=== PATIENT | male | born 1955 | race Caucasian/White ===

== ENCOUNTER 2024-06-29 10:28 | Outpatient (CLI) | payer BC, SELFPAY ==
--- NOTE | ~2024-06-29 | CT_ITS ---
EXAMINATION: CT sinus wo con DATE: 06/29/2024 10:45 INDICATION: Chronic sinusitis. TECHNIQUE: Computed tomography (CT) of the paranasal sinuses was performed without intravenous contra st. Iterative reconstruction technique was employed. The dose-length product was 279.12 mGy-cm. COMPARISON: None FINDINGS: There is mucosal thickening in the frontal sinuses with occlusion of the frontal recesses. There is moderate mucosal thickening in the ethmoid sinuses and right sphenoid sinus. There is mild m ucosal thickening in the maxillary sinuses. The ostiomeatal units are patent. There is leftward devia tion of the nasal septum. Right middle turbinate is paradoxical. There are bilateral optic nerve drus en. IMPRESSION: 1. Mucosal thickening in the paranasal sinuses. 2. Leftward deviation of the nasal septum. Reviewed, dictated and finalized at location A. TAL CONT[employer] SPECIALIST
== END 2024-06-29 10:29 | disposition home or self-care (01) ==
LOC: MICIMG 10:32
PROVIDERS: PCP Nurse Practitioner Family; Visit Provider Nurse Practitioner Family
DX: J32.9 Chronic sinusitis, unspecified (principal); J34.2 Deviated nasal septum
CPT/HCPCS: 70486

== ENCOUNTER 2024-12-14 10:12 | Outpatient (CLI) | payer BC, SELFPAY ==
--- OUTSIDE RECORDS SUMMARY | 2024-12-14 11:07 | XMS_ITS | Patient Health Record ---
Author Organization [facility] Address [address] [place] [address] Care Team Providers Care Stationary Engineer Supervisor Name Role Phone Carmelina Andrade MD Primary Care Provider Piyush Delarosa MD, Carlos Unavailable [phone] ALLERGIES No Known Allergies REASON FOR REFERRAL No Information MEDICATIONS Medication SIG (Take, Route, Fr equency, Duration) Notes Start Date End Date Status Atorvastatin Calcium Active IMMUNIZATIONS Vaccine Route Administration Date Status Comme nts Influenza Unknown 05/11/2018 Administered pneumoccocal Unknown 12/09/2018 Refused SOCIAL HISTORY Tobacco Use: Social History Observation Description Date Details (start date - stop date) Never Smoker NA - NA Sex Assigned At : Social History Observation Description Sex Assigned At Unknown Tobacco Use: Question Answer Notes Patient is a: nonsmoker Alcohol screening: Question Answer Notes Did you have a drink contain ing alcohol in the past year? Yes How often did you have a dri nk containing alcohol in the past year? Four or more times a week (4 points) How many drinks did you have on a typical day when you were drinking in the past year? 1 or 2 (0 points) Points 4 Interpretation Positive PROBLEMS Problem Type ICD Code Onset Dates Problem Status W/U Status Risk SNOMED Code Notes Problem Trochanteric bursitis of right hip (M70.61) Active confirmed 099812308075162 Problem Contusion of left foot, initial encounter (S90.32XA) Active confirmed 89544958858314496 Problem Walked into furniture, initial encounter (W22.03XA) Active confirmed 312103425 Problem Primary osteoarthritis of right hip (M16.11) 04/02/20 23 Active confirmed 051598278587951 Problem Essential (primary) hypertension (I10) Active confirmed [id number] PLAN OF TREATMENT No Information Insurance Providers Payer Name Payer Address Payer Phone Subscriber Number Group Number Insured Name Patient Relationship to Insured Coverage Start Date Coverage End Date [facility] [address] [place] [address] [id number] Kalia Ramirez Self - patient is the insured Medicare Secondary [address] [address] [place] [address] [id number] PART A ONLY Kalia Ramirez Self - patient is the insured MEDICAL (GENERAL) HISTORY Medical History History ICD Code hypertension hyperlipidemia Surgical History Surgery Date(Month/Year) tonsillectomy
--- OUTSIDE RECORDS SUMMARY | 2024-12-14 11:07 | XMS_ITS | Continuity of Care Document ---
Author Organization [facility] Address [address] [place] [address] [address] [place] [address] Phone Care Team Providers Care Crisis Intervention Counselor Name Role Phone Raj Esquivel Unavailable Unavailable Advance Directives Directive Yes / No Effective Date File Name No Information Encounters Encounter Description Practice Location Reason(s) For Visit Diagnoses Date Provider Providers Copied on Encounter [facility], [address], [place], [place], [id number], [place] tel:[phone] [address] [facility] [place] No Information 3 Alvin Anthony. [address] [place] , [facility] [address], [place], [place], [facility], [place]. tel:[phone] Referring Provider: Chase [facility] [place] [address] [address], [place], [place], [facility]. tel:[phone] Family History Family Member Type Diagnosis Age At Onset No Information Payers Payer name Insurance type Covered constitution party ID Authoriza tion(s) [employer] [place] [id number] Social History Type Description Quantity Date Captured Comments Sex Male Smoking Status No Information Chief Complaint And Reason For Visit No Information Reason For Referral Reason For Referral No Information History Of Present Illness Encounter Date Complaint History Of Prese nt Illness No Information Functional Status Date Functional Assessmen t No Information Instructions Date Instruction Additional Infor mation No Information Assessments Type Assessment Date No Information Patient Care Teams Name Effective Dates (start - stop) Status Members No Information
--- OUTSIDE RECORDS SUMMARY | 2024-12-14 11:07 | XMS_ITS | Clinical Summary ---
Author Organization 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 Gender Identity Not on file Sexual Orientation Not on file Plan of Treatment Health Maintenance Due Date Last Done Comments Hepatitis C Virus (HCV) Screening 1955 Colonoscopy 2002 Colorectal Cancer Screening 2002 Cologuard 2007 Immunochemical Fecal Occult Blood 2007 Pneumococcal Immunization (5 0+ years) (1 of 1 - PCV) 2007 Zoster Immunization (1 of 2) 2007 PSA Discussion 02/03/2012 Influenza Immunization (#1) 2024 SARS-COV-2 Immunization ( season) 2024 05/23/2021, 09/17/2020, 08/20/2020 Respiratory Syncytial Virus (RSV) Immunization (Adult) (1 - 1-dose 75+ series) 02/03/2032 DTaP/Tdap/Td Immunization Discontinued 2018, 11/16/2014 TdaP Immunization Completed 07/22/2018, 11/16/2014 Hepatitis B Immunization Aged Out No longer eligible based on patient's age to complete this topic Meningococcal Immunization (ACWY) Aged Out No longer eligible based on patient's age to complete this topic Rotavirus Immunization Aged Out No lo nger eligible based on patient's age to complete this topic
--- OUTSIDE RECORDS SUMMARY | 2024-12-14 11:07 | XMS_ITS ---
Author Organization [facility] Address [address] [place] [address] Care Team Providers Care Head Nurse Name Role Phone Raymond VALDOVINOS, Carmelina Primary Care Provider Piyush Delarosa MD, Carlos Unavailable [phone] ALLERGIES No Known Allergies REASON FOR VISIT right hip MEDICATIONS Medication SIG (Take, Route, Fr equency, Duration) Notes Start Date End Date Status Atorvastatin Calcium Active SOCIAL HISTORY Tobacco Use: Social History Observation [...] W/U Status Risk SNOMED Code Notes Problem Primary osteoarthritis of right hip (M16.11) 04/02/20 23 Active confirmed [id number] Problem Essential (primary) hypertension (I10) Active confirmed [id number] VITAL SIGNS Blood pressure systolic 144 mm Hg 08/02/19 24 Blood pressure diastolic 86 mm Hg 024 Heart Rate 69 /min 08/02/2023 Height 71 in 08/02/2023 Weight 180 lbs 08/02/2023 BMI 25.10 kg/m2 08/02/2023 Encounters Encounter Location Date Provider Diagnosis [facility] [address] [place] [address] 08/02/2023 Carlos Delarosa MD Primary osteoarthrit is of right hip M16.11 ASSESSMENTS Encounter Date Diagnosis Assessment Notes Treatment Notes Treatment Clinical Notes 08/02/2023 Primary osteoarthritis of right hip (ICD-10 - M16.11) PLAN OF TREATMENT No Information History and Physical Notes * HPI (History of Present Illness) Category Sub-Category Detail Notes Depression Screening PHQ-2 (2015 Edition) Little interest or pleasure in doing things?: Not at all Feeling down, depressed, or hopeless?: N ot at all Total Score: 0
--- OUTSIDE RECORDS SUMMARY | 2024-12-14 11:07 | XMS_ITS | Data Portability ---
Author Organization [facility], [employer] Address [address] [facility] [address] [facility] [address] [place] [address] Care Team Providers Care Crown Pouncer Name Role Phone EARNESTINE ANDERSON Primary Care Provider [phone] JAMES HUI Clinical Informatics Physician [phone] Assessment Encounter Date Assessment Date Assessment LastModified by Organization Details LastModified Time 01/10/2016 01/10/2016 Patient presented for follow up of labs. Studies ordered as below. Discussed plan with patient, who expressed understanding . Follow up as noted below. [email or web address] Not available 01/10/2016 12:52:18 04/21/2017 04/21/2017 Patient presented for follow up. Studies ordered as below. Discussed plan with patient/careg iver, who expressed understanding . Follow up as noted below. Not available 04/21/2017 17:57:29 10/20/2017 10/20/2017 Patient presented for follow up. Studies ordered as below. Discussed plan with patient/careg iver, who expressed understanding . Follow up as noted below. [email or web address] Not available 10/20/2017 17:36:47 07/22/2018 07/22/2018 Patient presented for follow up. Studies ordered as below. Discussed plan with patient/careg iver, who expressed understanding . Follow up as noted below. [email or web address] Not available 07/22/2018 09:01:50 Plan of Treatment Reminders Order Date Submit Date Provider Last Modified By Organization Details Last Modified Time Details Appointments None recorded. Lab HbA1c (hemoglobi n A1c), blood 2018 019 [email or web address] 1 [facility], [address] [facility], [place], [address], 9 09:41:55 C-peptide, serum 2018 019 1 [facility], [address], [place], [address], 9 09:41:56 glucose tolerance test, madhuandi al, 2-hour 2018 019 [email or web address] 1 [facility], [address], [place], [address], 9 09:41:56 microalbum in/creatin ine, mass ratio, urine 2018 019 [id number] 1 [facility], [address], [place], [address], 9 09:41:55 lipid panel, serum 2018 019 [id number] 1 [facility], [address], [place], [address], 9 09:41:55 TSH, serum or plasma 2018 019 [email or web address] 1 [facility], [address], [place], [address], 9 09:41:55 CK (creatine kinase), total, serum 2018 019 TIFFANIE [facility], [address], [place], [address], 9 14:12:44 CMP, serum or plasma 2018 019 [email or web address] 1 [facility], [address], [place], [address], 9 09:41:55 CBC w/ auto diff 2018 019 [email or web address] 1 [facility], [address], [place], [address], 9 09:41:55 CMP, serum or plasma 2016 017 [email or web address] [facility], [address], [place], [address], 7 09:19:16 CBC w/ auto diff 2016 017 [email or web address] [facility], [address], [place], [address], 7 09:19:16 lipid panel, serum 2016 017 [email or web address] [facility], [address], [place], [address], 7 09:19:17 TSH, serum or plasma 2016 017 [email or web address] [facility], [address], [place], [address], 7 09:19:17 PSA, serum or plasma 2016 017 [email or web address] [facility], [address], [place], [address], 7 09:19:17 hepatitis panel (A+B+C), acute, serum 2015 016 DBA_PATCH_ [id number] [facility], [address], [place], [address], 6 04:45:59 PSA, serum or plasma 2015 016 DBA_PATCH_ [id number] [facility], [address], [place], [address], 6 04:45:58 lipid panel w/ direct LDL, serum 2015 016 DBA_PATCH_ [id number] [facility], [address], [place], [address], 6 04:45:59 CMP, serum or plasma 2015 016 DBA_PATCH_ [id number] [facility], [address], [place], [address], 6 04:46:03 TSH, serum or plasma 2015 016 DBA_PATCH_ [id number] [facility], [address], [place], [address], 6 04:45:55 Referral colonoscop y referral 2018 019 [email or web address] 1 James Hui MD, [address], [place], [address], 9 09:42:04 optometris t referral 2018 019 [email or web address] 1 Whitney Knott, [address] [facility], [place], [address], 9 09:17:58 briar wood sorter referral 2017 018 [email or web address] Iron Carolina DPM, [address] [place], [address], 8 08:31:28 dermatolog ist referral 2016 017 [email or web address] Antwan Louise MD, [address] [facility] , [place], [address], 7 09:50:55 colonoscop y referral 2015 016 DBA_PATCH_ [id number] James Hui MD, [address], [place], [address], 6 04:45:55 Procedures None recorded. Surgeries None recorded. Imaging XR, hip, unilateral , 2 or 3 view 2018 019 [email or web address] 1 [facility] (Radiology), [address] [place] [address], [address], 9 15:03:22 electrocar diogram 2018 019 [facility], [address], [place], [address], 9 18:52:01 XR, foot 2017 018 Not available 8 08:44:45 Medication Orders tramadol 50 mg tablet 2018 019 [facility], [address] [place], [address], 9 09:25:24 nabumetone 500 mg tablet 2018 019 [facility], [address] [place], [address], 9 09:25:25 losartan 50 mg-hydroch lorothiazi de 12.5 mg tablet 2018 019 [facility], [address] [place], [address], 9 09:25:28 atorvastat in 20 mg tablet 2018 019 [facility], [address] [place], [address], 9 09:25:30 nabumetone 500 mg tablet 2017 018 [facility], [address] [place], [address], 8 18:32:14 Pravachol 20 mg tablet 2016 017 [email or web address], [address] [place], [address], 8 16:35:26 Patient TargetsNo targets recorded. Patient Instructions Encounter Date Encounter Id Patient Instructions Last Modified By Organization Details Last Modified Time 01/10/2016 [id number] colon polyps: care instructions [email or web address] Not available 01/10/2016 13:03:13 high cholesterol : care instructions [email or web address] Not available 01/10/2016 13:03:13 04/21/2017 [id number] colon polyps: care instructions [email or web address] Not available 04/24/2017 16:13:42 10/20/2017 [id number] plantar fasciitis: care instructions [email or web address] Not available 10/20/2017 18:28:24 plantar fasciitis: exercises [email or web address] Not available 10/20/2017 18:28:24 high cholesterol : care instructions [email or web address] Not available 10/20/2017 18:28:24 07/22/2018 [id number] learning about high blood sugar [email or web address] Not available 07/22/2018 09:22:22 colon polyps: care instructions [email or web address] Not available 07/22/2018 09:22:22 hip pain: care instructions Not available 07/22/2018 09:22:22 Reason for Referral Colonoscopy Referral for Fabián yp of colon Referring Physician: Earnestine Anderson [facility], Encounter Date: 01/10/2016 It Integration Architect Referral for L esion of skin of face Referring Physician: Earnestine Anderson [facility], Encounter Date: 04/21/2017 Camp Recreation Specialist Referral for Plan tar fasciitis Referring Physician: Earnestine Anderson [facility], Encounter Date: 10/20/2017 Glass Breaker Referral for Ronni lt health examination Referring Physician: Светлана Brock [facility], Encounter Date: 07/22/2018 Colonoscopy Referral for Fabián yp of colon Referring Physician: Светлана Brock [facility], Encounter Date: 07/22/2018 Results Created Date Observation Date Name Description Value Unit Range Abnormal Flag Note LastModifiedBy Organization Detail LastModifiedTime 01/16/20 16 01/17/2016 hepat itis panel (A+B+ C), acute , serum hepatitis A IgM NON-RE ACTIVE non-re active normal Not Available [facility] [address] [place], [address], 01/17/2016 07:08:34 01/16/20 16 01/17/2016 hepat itis panel (A+B+ C), acute , serum hepatitis B surface antigen NON-RE ACTIVE non-re active normal Not Available [address], [address], 01/17/2016 07:08:34 01/16/20 16 01/17/2016 hepat itis panel (A+B+ C), acute , serum hepatitis B core antibody (IgM) NON-RE ACTIVE non-re active normal Not Available [address], [address], 01/17/2016 07:08:34 01/16/20 16 01/17/2016 hepat itis panel (A+B+ C), acute , serum hepatitis C antibody NON-RE ACTIVE non-re active normal Not Available [address], [address], 01/17/2016 07:08:34 01/16/20 16 01/17/2016 hepat itis panel (A+B+ C), acute , serum signal to cut-off 0.01 <1.00 normal Not Available [address], [address], 01/17/2016 07:08:34 01/16/20 16 01/17/2016 lipid panel w/ direc t LDL, serum cholesterol, total 258 mg/dL 125-20 0 high Not Available [address], [address], 01/17/2016 07:08:35 01/16/20 16 01/17/2016 lipid panel w/ direc t LDL, serum HDL cholesterol 50 mg/dL > or = 40 normal Not Available [address], [address], 01/17/2016 07:08:35 01/16/20 16 01/17/2016 lipid panel w/ direc t LDL, serum triglyceride s 188 mg/dL <150 high Not Available [address] [address] [place], [address], 01/17/2016 07:08:35 01/16/20 16 01/17/2016 lipid panel w/ direc t LDL, serum direct LDL 163 mg/dL <130 high Amaury able range <100 mg/dL for patie nts with CHD or diabe michele and <70 mg/dL for diabe tic patie nts with known heart disea se. Not Available [address] [address] [place], [address], 01/17/2016 07:08:35 01/16/20 16 01/17/2016 lipid panel w/ direc t LDL, serum chol/HDLC ratio 5.2 (calc ) < or = 5.0 high Not Available [address], [address], 01/17/2016 07:08:35 01/16/20 16 01/17/2016 lipid panel w/ direc t LDL, serum non HDL cholesterol 208 mg/dL _(moreno c) high Targe t for non-H DL jennifer stero l is 30 mg/dL highe r than LDL jennifer stero l targe t. Not Available [address] [address] [place], [address], 01/17/2016 07:08:35 01/16/20 16 01/17/2016 CMP, serum or plasm a glucose 98 mg/dL 65-99 normal Fasti ng refer ence inter ezequiel Not Available [facility] [address] [address] [place], [address], 01/17/2016 07:08:35 01/16/20 16 01/17/2016 CMP, serum or plasm a urea nitrogen (BUN) 21 mg/dL 7-25 normal Not Available [facility] [address] [address] [place], [address], 01/17/2016 07:08:35 01/16/20 16 01/17/2016 CMP, serum or plasm a creatinine 1.08 mg/dL 0.70-1 .33 normal For patie nts >49 years of age, the refer ence limit for Creat inine is appro catia barber 13% highe r for peopl e ident ified as Afric an-Am jena n. Not Available [address] [address] [place], [address], 01/17/2016 07:08:35 01/16/20 16 01/17/2016 CMP, serum or plasm a eGFR non-afr. mexican 75 mL/mi n/1.7 3m2 > or = 60 normal Not Available [facility] [address] [address] [place], [address], 01/17/2016 07:08:35 01/16/20 16 01/17/2016 CMP, serum or plasm a eGFR 87 mL/mi n/1.7 3m2 > or = 60 normal Not Available [facility] [address] [address] [place], [address], 01/17/2016 07:08:35 01/16/20 16 01/17/2016 CMP, serum or plasm a BUN/creatini ne ratio NOT APPLIC ABLE (calc ) 6-22 Not Available [address] [address] [place], [address], 01/17/2016 07:08:35 01/16/20 16 01/17/2016 CMP, serum or plasm a sodium 140 mmol/ L 135-14 6 normal Not Available [facility] [address] [address] [place], [address], 01/17/2016 07:08:35 01/16/20 16 01/17/2016 CMP, serum or plasm a potassium 4.3 mmol/ L 3.5-5. 3 normal Not Available [facility] [address] [address] [place], [address], 01/17/2016 07:08:35 01/16/20 16 01/17/2016 CMP, serum or plasm a chloride 106 mmol/ L 98-110 normal Not Available [address], [address], 01/17/2016 07:08:35 01/16/20 16 01/17/2016 CMP, serum or plasm a carbon dioxide 24 mmol/ L 19-30 normal Not Available [address], [address], 01/17/2016 07:08:35 01/16/20 16 01/17/2016 CMP, serum or plasm a calcium 9.5 mg/dL 8.6-10 .3 normal Not Available [address], [address], 01/17/2016 07:08:35 01/16/20 16 01/17/2016 CMP, serum or plasm a protein, total 6.7 g/dL 6.1-8. 1 normal Not Available [address], [address], 01/17/2016 07:08:35 01/16/20 16 01/17/2016 CMP, serum or plasm a albumin 4.3 g/dL 3.6-5. 1 normal Not Available [address], [address], 01/17/2016 07:08:35 01/16/20 16 01/17/2016 CMP, serum or plasm a globulin 2.4 g/dL_ (calc ) 1.9-3. 7 normal Not Available [address], [address], 01/17/2016 07:08:35 01/16/2001/17/2016 CMP, serum or plasm a albumin/glob ulin ratio 1.8 (calc ) 1.0-2. 5 normal Not Available [address], [address], 01/17/2016 07:08:35 01/16/20 16 01/17/2016 CMP, serum or plasm a bilirubin, total 0.6 mg/dL 0.2-1. 2 normal Not Available [address], [address], 01/17/2016 07:08:35 01/16/20 16 01/17/2016 CMP, serum or plasm a alkaline phosphatase 56 U/L 40-115 normal Not Available [facility] [address], [address], 01/17/2016 07:08:35 01/16/20 16 01/17/2016 CMP, serum or plasm a AST 18 U/L 10-35 normal Not Available [facility] [address], [address], 01/17/2016 07:08:35 01/16/20 16 01/17/2016 CMP, serum or plasm a ALT 18 U/L 9-46 normal Not Available [facility] [address], [address], 01/17/2016 07:08:35 01/16/20 16 01/17/2016 TSH, serum or plasm a TSH 0.44 mIU/L 0.40-4 .50 normal Not Available [facility] [address], [address], 01/17/2016 07:08:35 01/16/2001/17/2016 PSA, serum or plasm a PSA, total 0.9 NG/mL < or = 4.0 normal This test was perfo rmed using the xMatterse miLibris chemi lumin escen t metho d. Value s obtai malgorzata from diffe rent assay metho ds canno t be used inter alfonso eably . PSA level s, regar dless of value , shoul d not be inter prete d as absol lumbee evide nce of the prese nce or absen ce of disea se. Not Available [facility] [address], [address], 01/17/2016 07:08:36 11/06/19 18 11/06/2017 lipid panel , serum cholesterol, total 251 mg/dL <200 high Not Available [address], [address], 11/06/2017 06:31:04 11/06/19 18 11/06/2017 lipid panel , serum HDL cholesterol 42 mg/dL >40 normal Not Available [facility] [address] [address] [place], [address], 11/06/2017 06:31:04 11/06/19 18 11/06/2017 lipid panel , serum triglyceride s 314 mg/dL <150 high Not Available [facility] [address], [address], 11/06/2017 06:31:04 11/06/19 18 11/06/2017 lipid panel , serum LDL-choleste rol 161 mg/dL _(moreno c) high Refer ence range : <100 Amaury able range <100 mg/dL for prima ry preve ntion ; <70 mg/dL for patie nts with CHD or diabe tic patie nts with > or = 2 CHD risk facto rs. LDL-C is now calcu lated using the Bina n-Hop kins calcu jono n, which is a valid ated novel metho d kofi haro r accur acy than the Fried flo equat ion in the estim ation of LDL-C . Bina hodge SS et al. SANDRA. 2013; 310(1 9): 2061- 2068 (http ://ed ucati on.Qu estDi inDegrees. com/f aq/FA Q164) Not Available [facility] [address] [address] [place], [address], 11/06/2017 06:31:04 11/06/19 18 11/06/2017 lipid panel , serum chol/HDLC ratio 6.0 (calc ) <5.0 high Not Available [facility] [address], [address], 11/06/2017 06:31:04 11/06/19 18 11/06/2017 lipid panel , serum non HDL cholesterol 209 mg/dL _(moreno c) <130 high For patie nts with diabe michele plus 1 major ASCVD risk facto r, treat ing to a non-H DL-C goal of <100 mg/dL (LDL- C of <70 mg/dL ) is consi dered a thera peuti c optio n. Not Available [facility] [address] [address] [place], [address], 11/06/2017 06:31:04 11/06/19 18 11/06/2017 lipid panel , serum copy(ies) sent to: [facility] [address] [place] [address] Not Available [facility] [address] [address] [place], [address], 11/06/2017 06:31:04 11/06/19 18 11/06/2017 CMP, serum or plasm a glucose 112 mg/dL 65-99 high Fasti ng refer ence inter ezequiel For someo ne witho ut known diabe michele, a gluco se value betwe en 100 and 125 mg/dL is consi stent with predi abete s and shoul d be confi rmed with a follo w-up test. Not Available [facility] [address] [address] [place], [address], 11/06/2017 06:31:05 11/06/19 18 11/06/2017 CMP, serum or plasm a urea nitrogen (BUN) 17 mg/dL 7-25 normal Not Available [facility] [address] [address] [place], [address], 11/06/2017 06:31:05 11/06/19 18 11/06/2017 CMP, serum or plasm a creatinine 1.01 mg/dL 0.70-1 .25 normal For patie nts >49 years of age, the refer ence limit for Creat inine is appro ximat elisabeth 13% highe r for peopl e ident ified as Afric an-Am jena n. Not Available [facility] [address] [address] [place], [address], 11/06/2017 06:31:05 11/06/19 18 11/06/2017 CMP, serum or plasm a eGFR non-afr. mexican 80 mL/mi n/1.7 3m2 > or = 60 normal Not Available [facility] [address] [address] [place], [address], 11/06/2017 06:31:05 11/06/19 18 11/06/2017 CMP, serum or plasm a eGFR 93 mL/mi n/1.7 3m2 > or = 60 normal Not Available [facility] [address] [address] [place], [address], 11/06/2017 06:31:05 11/06/19 18 11/06/2017 CMP, serum or plasm a BUN/creatini ne ratio NOT APPLIC ABLE (calc ) 6-22 Not Available [address] [address] [place], [address], 11/06/2017 06:31:05 11/06/19 18 11/06/2017 CMP, serum or plasm a sodium 140 mmol/ L 135-14 6 normal Not Available [facility] [address] [address] [place], [address], 11/06/2017 06:31:05 11/06/19 18 11/06/2017 CMP, serum or plasm a potassium 4.3 mmol/ L 3.5-5. 3 normal Not Available [facility] [address] [address] [place], [address], 11/06/2017 06:31:05 11/06/19 18 11/06/2017 CMP, serum or plasm a chloride 106 mmol/ L 98-110 normal Not Available [facility] [address] [address] [place], [address], 11/06/2017 06:31:05 11/06/19 18 11/06/2017 CMP, serum or plasm a carbon dioxide 24 mmol/ L 20- normal Not Available [address], [address], 11/06/2017 06:31:11/06/19 18 11/06/2017 CMP, serum or plasm a calcium 9.4 mg/dL 8.6-10 .3 normal Not Available [address], [address], 11/06/2017 06:31:11/06/19 18 11/06/2017 CMP, serum or plasm a protein, total 6.2 g/dL 6.1-8. 1 normal Not Available [address], [address], 11/06/2017 06:31:11/06/19 18 11/06/2017 CMP, serum or plasm a albumin 4.0 g/dL 3.6-5. 1 normal Not Available [address], [address], 11/06/2017 06:31:11/06/19 18 11/06/2017 CMP, serum or plasm a globulin 2.2 g/dL_ (calc ) 1.9-3. 7 normal Not Available [address], [address], 11/06/2017 06:31:05 11/06/19 18 11/06/2017 CMP, serum or plasm a albumin/glob ulin ratio 1.8 (calc ) 1.0-2. 5 normal Not Available [facility] [address], [address], 11/06/2017 06:31:05 11/06/19 18 11/06/2017 CMP, serum or plasm a bilirubin, total 0.5 mg/dL 0.2-1. 2 normal Not Available [facility] [address], [address], 11/06/2017 06:31:05 11/06/19 18 11/06/2017 CMP, serum or plasm a alkaline phosphatase 63 U/L 40-115 normal Not Available [facility] [address], [address], 11/06/2017 06:31:05 11/06/19 18 11/06/2017 CMP, serum or plasm a AST 19 U/L 10-35 normal Not Available [address], [address], 11/06/2017 06:31:05 11/06/19 18 11/06/2017 CMP, serum or plasm a ALT 20 U/L 9-46 normal Not Available [address], [address], 11/06/2017 06:31:05 11/06/19 18 11/06/2017 CMP, serum or plasm a copy(ies) sent to: [facility] [address] [place] [address] Not Available [address], [address], 11/06/2017 06:31:05 11/06/19 18 11/06/2017 CBC w/ auto diff white blood cell count 4.5 thous and/u L 3.8-10 .8 normal Not Available [address], [address], 11/06/2017 06:31:05 11/06/19 18 11/06/2017 CBC w/ auto diff red blood cell count 4.91 reinaldo on/uL 4.20-5 .80 normal Not Available [facility] [address], [address], 11/06/2017 06:31:05 11/06/19 18 11/06/2017 CBC w/ auto diff hemoglobin 14.5 g/dL 13.2-1 7.1 normal Not Available [facility] [address], [address], 11/06/2017 06:31:05 11/06/19 18 11/06/2017 CBC w/ auto diff hematocrit 43.7 % 38.5-5 0.0 normal Not Available [address], [address], 11/06/2017 06:31:05 11/06/19 18 11/06/2017 CBC w/ auto diff MCV 89.0 fL 80.0-1 00.0 normal Not Available [address], [address], 11/06/2017 06:31:05 11/06/19 18 11/06/2017 CBC w/ auto diff MCH 29.5 pg 27.0-3 3.0 normal Not Available [address], [address], 11/06/2017 06:31:05 11/06/19 18 11/06/2017 CBC w/ auto diff MCHC 33.2 g/dL 32.0-3 6.0 normal Not Available [address], [address], 11/06/2017 06:31:05 11/06/19 18 11/06/2017 CBC w/ auto diff RDW 13.1 % 11.0-1 5.0 normal Not Available [address], [address], 11/06/2017 06:31:05 11/06/19 18 11/06/2017 CBC w/ auto diff platelet count 229 thous and/u L 140-40 0 normal Not Available [address], [address], 11/06/2017 06:31:05 11/06/19 18 11/06/2017 CBC w/ auto diff MPV 10.7 fL 7.5-12 .5 normal Not Available [address], [address], 11/06/2017 06:31:05 11/06/19 18 11/06/2017 CBC w/ auto diff absolute neutrophils 2367 cells /uL 1500-7 800 normal Not Available [facility] [address] [address] [place], [address], 11/06/2017 06:31:05 11/06/19 18 11/06/2017 CBC w/ auto diff absolute lymphocytes 1260 cells /uL 850-39 00 normal Not Available [facility] [address] [address] [place], [address], 11/06/2017 06:31:05 11/06/19 18 11/06/2017 CBC w/ auto diff absolute monocytes 495 cells /uL 200-95 0 normal Not Available [facility] [address], [address], 11/06/2017 06:31:05 11/06/19 18 11/06/2017 CBC w/ auto diff absolute eosinophils 329 cells /uL 15-500 normal Not Available [facility] [address] [place], [address], 11/06/2017 06:31:05 11/06/19 18 11/06/2017 CBC w/ auto diff absolute basophils 50 cells /uL 0-200 normal Not Available [facility] [address], [address], 11/06/2017 06:31:05 11/06/19 18 11/06/2017 CBC w/ auto diff neutrophils 52.6 % normal Not Available [facility] [address] [place], [address], 11/06/2017 06:31:05 11/06/19 18 11/06/2017 CBC w/ auto diff lymphocytes 28.0 % normal Not Available [facility] [address] [address] [place], [address], 11/06/2017 06:31:05 11/06/19 18 11/06/2017 CBC w/ auto diff monocytes 11.0 % normal Not Available [address], [address], 11/06/2017 06:31:05 11/06/19 18 11/06/2017 CBC w/ auto diff eosinophils 7.3 % normal Not Available [address], [address], 11/06/2017 06:31:05 11/06/19 18 11/06/2017 CBC w/ auto diff basophils 1.1 % normal Not Available [address], [address], 11/06/2017 06:31:05 11/06/19 18 11/06/2017 CBC w/ auto diff copy(ies) sent to: [facility] [address] [place] [address] Not Available [address], [address], 11/06/2017 06:31:05 11/06/19 18 11/06/2017 TSH, serum or plasm a TSH 0.76 mIU/L 0.40-4 .50 normal Not Available [address], [address], 11/06/2017 06:31:06 11/06/19 18 11/06/2017 TSH, serum or plasm a copy(ies) sent to: [facility] [address] [place] [address] Not Available [address], [address], 11/06/2017 06:31:06 11/06/19 18 11/06/2017 PSA, serum or plasm a PSA, total 0.8 NG/mL < or = 4.0 normal The total PSA value from this assay syste m is stand ardiz ed again st the WHO stand tom. The test resul t will be appro ximat elisabeth 20% lower when dameon red to the equim olar- stand ardiz ed total PSA (Shen man Coult er). Dameon rison of seria l PSA resul ts shoul d be inter prete d with this fact in mind. This test was perfo rmed using the Sieme ns chemi lumin escen t metho d. Value s obtai malgorzata from diffe rent assay metho ds canno t be used inter alfonso eably . PSA level s, regar dless of value , shoul d not be inter prete d as absol lumbee evide nce of the prese nce or absen ce of disea se. Not Available [facility] [address], [address], 11/06/2017 06:31:06 11/06/19 18 11/06/2017 PSA, serum or plasm a copy(ies) sent to: [facility] [place] [address] Not Available [facility] [address], [address], 11/06/2017 06:31:06 11/27/19 18 11/27/2017 gluco se hector ance test, post- 75G, 3 speci mens fasting specimen 87 mg/dL 65-99 normal Not Available [facility] [address], [address], 11/27/2017 07:49:58 11/27/19 18 11/27/2017 gluco se hector ance test, post- 75G, 3 speci mens 1 hour specimen 154 mg/dL normal Not Available [facility] [address], [address], 11/27/2017 07:49:58 11/27/19 18 11/27/2017 gluco se hector ance test, post- 75G, 3 speci mens 2 hour specimen 88 mg/dL <140 normal Not Available [facility] [address] [place], [address], 11/27/2017 07:49:58 11/27/19 18 11/27/2017 gluco se hector ance test, post- 75G, 3 speci mens comment [facility] pedro for Diabe michele Melli tus Gluco se Value (mg/d L) Inter preta tion Fasti ng 1 Hr 2 Hr Hector ance Hector ance ----- ----- ---- ----- ---- ----- ---- ----- ---- Vanita l <1 00 Not Estab lishe d <140 Impai red Fasti ng 100-1 25 Impai red Hector ance 140-1 99 Diabe micehle >OR=1 26* >OR=2 00* * Must be confi rmed by testi yobani on a subse quent day. Not Available [facility] [address] [address] [place], [address], 11/27/2017 07:49:58 08/05/1908/08/2018 lipid panel , serum cholesterol, total 217 mg/dL <200 high Not Available [facility] [address] [address] [place], [address], 08/08/2018 14:12:43 08/05/1908/08/2018 lipid panel , serum HDL cholesterol 58 mg/dL >40 normal Not Available [facility] [address] [address] [place], [address], 08/08/2018 14:12:43 08/05/1908/08/2018 lipid panel , serum triglyceride s 143 mg/dL <150 normal Not Available [facility] [address] [address] [place], [address], 08/08/2018 14:12:43 08/05/1908/08/2018 lipid panel , serum LDL-choleste rol 133 mg/dL _(moreno c) high Refer ence range : <100 Amaury able range <100 mg/dL for prima ry preve ntion ; <70 mg/dL for patie nts with CHD or diabe tic patie nts with > or = 2 CHD risk facto rs. LDL-C is now calcu lated using the [facility] kins joon de la cruz n, which is a valid ated novel loly tran than the Fried flo pedro ion in the estim ation of LDL-C . Bina hodge SS et al. SANDRA. 2013; 310(1 9): 2061- 2068 (http ://ed ucati on.Qu stuDi inDegrees. com/f aq/FA Q164) Not Available [facility] [address] [address] [address], [place], [address], 08/08/2018 14:12:43 08/05/1908/08/2018 lipid panel , serum chol/HDLC ratio 3.7 (calc ) <5.0 normal Not Available [facility] [address] [address] [place], [address], 08/08/2018 14:12:43 08/05/1908/08/2018 lipid panel , serum non HDL cholesterol 159 mg/dL _(moreno c) <130 high For patie nts with diabe michele plus 1 major ASCVD risk facto r, treat ing to a non-H DL-C goal of <100 mg/dL (LDL- C of <70 mg/dL ) is consi dered a thera peuti c optio n. Not Available [facility] [address] [address] [place], [address], 08/08/2018 14:12:43 08/05/1908/08/2018 CMP, serum or plasm a glucose 105 mg/dL 65-99 high Fasti ng refer ence inter ezequiel For someo ne witho ut known diabe michele, a gluco se value betwe en 100 and 125 mg/dL is consi stent with predi abete s and shoul d be confi rmed with a follo w-up test. Not Available [facility] [address] [address] [address], [place], [address], 08/08/2018 14:12:43 08/05/1908/08/2018 CMP, serum or plasm a urea nitrogen (BUN) 16 mg/dL 7-25 normal Not Available [address], [address], 08/08/2018 14:12:43 08/05/1908/08/2018 CMP, serum or plasm a creatinine 0.98 mg/dL 0.70-1 .25 normal For patie nts >49 years of age, the refer ence limit for Creat inine is appro ximat elisabeth 13% highe r for peopl e ident ified as Afric an-Am jena n. Not Available [address], [address], 08/08/2018 14:12:43 08/05/1908/08/2018 CMP, serum or plasm a eGFR non-afr. mexican 83 mL/mi n/1.7 3m2 > or = 60 normal Not Available [address] [address] [place], [address], 08/08/2018 14:12:43 08/05/1908/08/2018 CMP, serum or plasm a eGFR 96 mL/mi n/1.7 3m2 > or = 60 normal Not Available [address] [address] [place], [address], 08/08/2018 14:12:43 08/05/1908/08/2018 CMP, serum or plasm a BUN/creatini ne ratio NOT APPLIC ABLE (calc ) 6-22 Not Available [address] [address] [place], [address], 08/08/2018 14:12:43 08/05/1908/08/2018 CMP, serum or plasm a sodium 141 mmol/ L 135-14 6 normal Not Available [address] [address] [place], [address], 08/08/2018 14:12:43 08/05/1908/08/2018 CMP, serum or plasm a potassium 4.3 mmol/ L 3.5-5. 3 normal Not Available [address], [address], 08/08/2018 14:12:43 08/05/19 19 08/08/2018 CMP, serum or plasm a chloride 106 mmol/ L 98-110 normal Not Available [address], [address], 08/08/2018 14:12:43 08/05/1908/08/2018 CMP, serum or plasm a carbon dioxide 24 mmol/ L 20-32 normal Not Available [address], [address], 08/08/2018 14:12:43 08/05/1908/08/2018 CMP, serum or plasm a calcium 9.4 mg/dL 8.6-10 .3 normal Not Available [address], [address], 08/08/2018 14:12:43 08/05/1908/08/2018 CMP, serum or plasm a protein, total 6.5 g/dL 6.1-8. 1 normal Not Available [address], [address], 08/08/2018 14:12:43 08/05/1908/08/2018 CMP, serum or plasm a albumin 4.4 g/dL 3.6-5. 1 normal Not Available [address], [address], 08/08/2018 14:12:43 08/05/1908/08/2018 CMP, serum or plasm a globulin 2.1 g/dL_ (calc ) 1.9-3. 7 normal Not Available [address], [address], 08/08/2018 14:12:43 08/05/1908/08/2018 CMP, serum or plasm a albumin/glob ulin ratio 2.1 (calc ) 1.0-2. 5 normal Not Available [address], [address], 08/08/2018 14:12:43 08/05/19 19 08/08/2018 CMP, serum or plasm a bilirubin, total 0.4 mg/dL 0.2-1. 2 normal Not Available [address], [address], 08/08/2018 14:12:43 08/05/19 19 08/08/2018 CMP, serum or plasm a alkaline phosphatase 61 U/L 40-115 normal Not Available [address], [address], 08/08/2018 14:12:43 08/05/1908/08/2018 CMP, serum or plasm a AST 19 U/L 10-35 normal Not Available [address], [address], 08/08/2018 14:12:43 08/05/1908/08/2018 CMP, serum or plasm a ALT 24 U/L 9-46 normal Not Available [address], [address], 08/08/2018 14:12:43 08/05/1908/08/2018 CK (crea fercho kinas e), total , serum creatine kinase, total 88 U/L 44-196 normal Not Available [address], [address], 08/08/2018 14:12:44 08/05/1908/08/2018 micro album in/cr eatin ine, mass ratio , urine creatinine, random urine 187 mg/dL 20-320 normal Not Available [address], [address], 08/08/2018 14:12:44 08/05/19 19 08/08/2018 micro album in/cr eatin ine, mass ratio , urine microalbumin 1.5 mg/dL see note: normal Refer ence Range : Refer ence Range Not estab lishe d Not Available [address], [address], 08/08/2018 14:12:44 08/05/19 19 08/08/2018 micro album in/cr eatin ine, mass ratio , urine microalbumin /creatinine ratio, random urine 8 mcg/m g_cre at <30 normal The ADA defin es abnor malit ies in album in excre tion as follo ws: Categ ory Resul t (mcg/ mg creat inine ) Vanita l <30 Micro album inuri a 30-29 9 Clini moreno album inuri a > OR = 300 The ADA recom mends that at least two of three speci mens colle cted withi n a 3-6 month perio d be abnor mal befor e consi donna g a patie nt to be withi n a diagn ostic categ ory. Not Available [address], [address], 08/08/2018 14:12:44 08/05/19 19 08/08/2018 CBC w/ auto diff white blood cell count 5.1 thous and/u L 3.8-10 .8 normal Not Available [address], [address], 08/08/2018 14:12:45 08/05/1908/08/2018 CBC w/ auto diff red blood cell count 5.00 reinaldo on/uL 4.20-5 .80 normal Not Available [address], [address], 08/08/2018 14:12:45 08/05/19 19 08/08/2018 CBC w/ auto diff hemoglobin 15.1 g/dL 13.2-1 7.1 normal Not Available [address], [address], 08/08/2018 14:12:45 08/05/19 19 08/08/2018 CBC w/ auto diff hematocrit 43.9 % 38.5-5 0.0 normal Not Available [address], [address], 08/08/2018 14:12:45 08/05/19 19 08/08/2018 CBC w/ auto diff MCV 87.8 fL 80.0-1 00.0 normal Not Available [address], [address], 08/08/2018 14:12:45 08/05/1908/08/2018 CBC w/ auto diff MCH 30.2 pg 27.0-3 3.0 normal Not Available [address], [address], 08/08/2018 14:12:45 08/05/19 19 08/08/2018 CBC w/ auto diff MCHC 34.4 g/dL 32.0-3 6.0 normal Not Available [address], [address], 08/08/2018 14:12:45 08/05/19 19 08/08/2018 CBC w/ auto diff RDW 12.7 % 11.0-1 5.0 normal Not Available [address], [address], 08/08/2018 14:12:45 08/05/19 19 08/08/2018 CBC w/ auto diff platelet count 233 thous and/u L 140-40 0 normal Not Available [address], [address], 08/08/2018 14:12:45 08/05/19 19 08/08/2018 CBC w/ auto diff MPV 10.9 fL 7.5-12 .5 normal Not Available [address], [address], 08/08/2018 14:12:45 08/05/1908/08/2018 CBC w/ auto diff absolute neutrophils 2973 cells /uL 1500-7 800 normal Not Available [address] [address] [place], [address], 08/08/2018 14:12:45 08/05/1908/08/2018 CBC w/ auto diff absolute lymphocytes 1153 cells /uL 850-39 00 normal Not Available [address] [address] [place], [address], 08/08/2018 14:12:45 08/05/1908/08/2018 CBC w/ auto diff absolute monocytes 510 cells /uL 200-95 0 normal Not Available [address] [place], [address], 08/08/2018 14:12:45 08/05/1908/08/2018 CBC w/ auto diff absolute eosinophils 393 cells /uL 15-500 normal Not Available [address] [address] [place], [address], 08/08/2018 14:12:45 08/05/1908/08/2018 CBC w/ auto diff absolute basophils 71 cells /uL 0-200 normal Not Available [address] [address] [place], [address], 08/08/2018 14:12:45 08/05/1908/08/2018 CBC w/ auto diff neutrophils 58.3 % normal Not Available [address] [address] [place], [address], 08/08/2018 14:12:45 08/05/1908/08/2018 CBC w/ auto diff lymphocytes 22.6 % normal Not Available [facility] [address] [address] [place], [address], 08/08/2018 14:12:45 08/05/1908/08/2018 CBC w/ auto diff monocytes 10.0 % normal Not Available [address], [address], 08/08/2018 14:12:45 08/05/1908/08/2018 CBC w/ auto diff eosinophils 7.7 % normal Not Available [address], [address], 08/08/2018 14:12:45 08/05/1908/08/2018 CBC w/ auto diff basophils 1.4 % normal Not Available [address], [address], 08/08/2018 14:12:45 08/05/1908/08/2018 C-pep tide, serum C-peptide 2.50 NG/mL 0.80-3 .85 normal Not Available [address], [address], 08/08/2018 14:12:45 08/05/1908/08/2018 TSH, serum or plasm a TSH 2.06 mIU/L 0.40-4 .50 normal Not Available [address], [address], 08/08/2018 14:12:45 08/05/1908/08/2018 HbA1c (hemo globi n A1c), blood hemoglobin A1C 5.7 %_of_ total _HGB <5.7 high For someo ne witho ut known diabe michele, a hemog lobin A1c value betwe en 5.7% and 6.4% is consi stent with predi abete s and shoul d be confi rmed with a follo w-up test. For someo ne with known diabe michele, a value <7% indic ates that their diabe michele is well contr olled . A1c targe ts shoul d be indiv idual ized based on durat ion of diabe michele, age, comor bid condi tions , and other consi derat ions. This assay resul t is consi stent with an incre ased risk of diabe michele. Curre ntly, no conse nsus exist s nilesh li use of hemog lobin A1c for diagn osis of diabe michele for child karthik. Not Available [facility] [address] [address], [place], [address], 08/08/2018 14:12:46 07/25/19 19 07/22/2018 elect chase lunagr am inter preta tion* No observ ation record ed. [email or web address] Not Available 2018 16:29:08 Result Notes None recorded. Problems Name Problem SNOMED Code Status Onset Date Resolution Date Notes Provider Name and Address Organization Details Recorded Time Polyp of colon 89052538 [facility] Primary erectile dysfunction 247736685 Completed 04/21/2017 Earnestine Anderson MD [address], [place], [address], [facility] 7 18:48:46 Hyperlipide gerard 55512132 [facility] 09:27[facility]44 Problem Notes None recorded. Procedures Surgical History Date Name Laterality Status Provider Name and Address Organization Details Recorded Time 1 Colonoscopy completed Mihaela Lombardi [facility] 01/10/2016 09:26:48 Imaging Results None recorded. Procedure Notes None recorded. Medical Equipment None Reported. Allergies Allergen ID Allergen Name Allergen Category Reaction Reaction Severity Criticality Documentation Date Start Date Code Code System Note Provider Name and Address Organization Details Recorded Time 282 Zocor medicatio n Not available Not available Not available 01/10/2016 3 RxNorm Mihaela franco [facility] 6 09:26:57 Medications Name Sig Start Date Stop Date Status Note LastModified by Organization Details LastModified Time atorvastatin 20 mg tablet Take 1 tablet every day by oral route at bedtime. active Not Available Not Available No t Available trazodone 50 mg tablet Take 1 tablet every day by oral route at bedtime. 2018 active Not Available Not Available Not Avai lable penicillin V potassium 500 mg tablet 07/22 completed Not Available Not Available Not Available tramadol 50 mg tablet Take 1 tablet every 8 hours by oral route as needed. 2018 active Not Available Not Available Not Avai lable oseltamivir 75 mg capsule TAKE 1 CAPSULE DAILY 04/21 completed Not Available Not Available Not Available Pravachol 20 mg tablet Take 1 tablet every day by oral route at bedtime. 11/07 completed Not Available Not Available Not Available losartan 50 mg-hydrochlo rothiazide 12.5 mg tablet Take 1 tablet every day by oral route in the morning. 2018 active Not Available Not Available Not Avai lable nabumetone 500 mg tablet TAKE ONE TABLET TWICE DAILY 2018 active Not Available Not Available Not Avai lable Fluzone Quad (PF) 60 mcg(15 mcgx4)/0.5 mL intramuscula r syringe 07/22 completed Not Available Not Available Not Available Flublok Quad (PF) 180 mcg (45 mcg x 4)/0.5 mL IM syringe 07/22 completed Not Available Not Available Not Available Vitals Date Recorded Systolic blood pressure Diastolic blood pressure Provider Name and Address Organization Details Last Updated DateTime 07/22/2018 172 mm[Hg] 108 mm[Hg] СВЕТЛАНА BROCK APN [address], [place], [address], [facility] 07/22/2018 09:15:20 Date Recorded Body height Heart rate Respiratory rate Body temperature Body mass index (BMI) Body weight Systolic blood pressure Diastolic blood pressure Provider Name and Address Organization Details Last Updated DateTime 9 180.34 cm 74 /min 18 /min 97.5 [degF] 25.8 kg/m2 36028.5 9 g 172 mm[Hg] 88 mm[Hg] Montserrat Watson [facility] 9 09:02:38 Date Recorded Systolic blood pressure Diastolic blood pressure Provider Name and Address Organization Details Last Updated DateTime 10/20/2017 134 mm[Hg] 73 mm[Hg] Earnestine Anderson MD [address], [place], [address], [facility] 10/20/2017 18:28:49 Date Recorded Body height Body mass index (BMI) Body weight Respiratory rate Body temperature Heart rate Provider Name and Address Organization Details Last Updated DateTime 8 180.34 cm 26.2 kg/m2 15709.3 7 g 18 /min 97.1 [degF] 73 /min Mihaela Lombardi [facility] 8 17:37:30 Date Recorded Body weight Body height Body mass index (BMI) Respiratory rate Body temperature Heart rate Systolic blood pressure Diastolic blood pressure Provider Name and Address Organization Details Last Updated DateTime 6 01543.4 g 180.34 cm 25.5 kg/m2 18 /min 98.9 [degF] 56 /min 125 mm[Hg] 82 mm[Hg] Mihaela Lombardi [facility] 6 12:13:04 Date Recorded Respiratory rate Body height Body mass index (BMI) Body weight Heart rate Systolic blood pressure Diastolic blood pressure Provider Name and Address Organization Details Last Updated DateTime 7 18 /min 180.34 cm 25.7 kg/m2 86549 g 68 /min 137 mm[Hg] 78 mm[Hg] Mihaela Lombardi [facility] 7 17:59:29 Social History Question Answer Notes LastModified by Organizat Trunity Details LastModified Time Tobacco Smoking Status Former Smoker Mihaela Lombardi [facility] 01/10/2016 09:26:32 Live Alone Or With Others? With Others Information not available 01/10/2016 What Was The Date Of Your Most Recent Tobacco Screening? 07/22/2018 Information n ot available 01/25/2019 Sex: Unknown Functional Status Question Answer Note LastModified by Organizat ion Details LastModified Time What is your level of alcohol consumption? Occasional [email or web address] Information not available 01/10/2016 Mental Status None recorded. Family History Relationship Description Onset Age of this Age Resolved Age Notes LastModified by Organization Details LastModified Time Father History of Hodgkin lymphoma 35 [email or web address] Not available 2015 09:27:19 Medical History Condition Response Coronary Artery Disease N Other N Gout N Blood Diseases N Kidney Stones N Hyperthyroidism N Blood Transfusion N Breast Cancer N Lung Disease N Hypothyroidism N Depression N COPD N Defects or Inherited Disease N Developmental or Behavioral Disorders N Breast Problem N Difficulty Swallowing N Anesthesia Complications N Anxiety Disorder N Meniere's disease N Muscle, Joint, or Bone Problems N Obesity N Vision or Eye Problems N Arthritis N Infertility N Polyps N Mental Disorder N Cancer N Varicosities N Stroke N Endometriosis N Bladder or Kidney Problems N High Cholesterol N Liver Disease N Headaches N Fibromyalgia N Kidney Disease N Allergies/Hayfever N Heart Problems N Ear or Hearing Problems N Hospitalizations N Thyroid Problems N GI Problems N ADD/ADHD N Eating Disorder N Skin Problems N Anemia N MRSA exposure N Constipation N Mental Illness N Diabetes N Ovarian Cancer N Bedwetting N Seizures/Epilepsy N Tuberculosis N AIDS/HIV N Congestive Heart Failure (CHF) N Eczema N Abuse/Domestic Violence N Diverticulitis N Asthma N Reflux/GERD N Hepatitis N Heart Disease N Pulmonary Embolism N Chronic Ear Infections N Pre-Eclampsia N Hypertension N Chicken Pox N Autism Spectrum Disorder (ASD) N Osteoporosis N Thrombophilias N Past Encounters Encounter ID Performer Location Encounter Start Date Encounter Closed Date Diagnosis/Indication Diagnosis SNOMED-CT Code Diagnosis ICD10 Code Diagnosis Note [id number] Earnestine Anderson MD [facility], [facility] [address] [place] [address] 01/10/2016 11:36:43 01/10/2016 13:03:51 Hyperlipidemia 08613298 E78.5 on diet Polyp of colon 28360393 K63.5 Viral screening 55263057 4 Z11.59 Active or passive immunization 777227042 Z23 Screening for malignant neoplasm of prostate 498622217 Z12.5 [id number] Earnestine Anderson MD Phil Campbell [facility], [facility] [address] [place] [address] 04/21/2017 17:54:38 04/21/2017 18:59:19 Adult health examination 710879339 Z00.00 per pt had optometry eval 2 months ago Hyperlipidemia 73023552 E78.5 Polyp of colon 07742208 K63.5 last C scope 02/28/16, repeat 2019 Active or passive immunization 999547299 Z23 Screening for malignant neoplasm of colon 207540117 Z12.11 last C scope 02/28/16, repeat 2019 Screening for malignant neoplasm of prostate 830158158 Z12.5 Lesion of skin of face 3361315974 06 L98.9 [id number] Earnestine Anderson MD [address] [employer] [address] [place] [address] 10/20/2017 17:20:29 10/20/2017 18:34:42 Plantar fasciitis 462505918 M72.2 Hyperlipidemia 19584340 E78.5 pls do lab MAGNUS History of polyp of colon 279754055 Z86.010 per pt had C scope 2016 , good till 2019 [id number] СВЕТЛАНА BROCK [facility] [address] [place] [address] 07/22/2018 08:48:01 07/22/2018 09:25:07 Pain of hip region 78455756 M25.559 Adult heal th examination 582122190 Z00.00 Hyperlipidemia 26872299 E78.5 LDL 161 ----- 11/2017has not been taking atorvastat in -planning on seeing a specialist for cholestrol - STLstates he will restart atorvastat in until he see specialist education - Polyp of colon 45043144 K63.5 last C scope 02/28/16, repeat 2019 Active or passive immunization 305188528 Z23 pt reports obtained flu vaccinatio n this season - Screening for malignant neoplasm of colon 888575706 Z12.11 last C scope 02/28/16, repeat 2019 Screening for malignant neoplasm of prostate 043932880 Z12.5 PSA 0.8 --- 11/2017 Benign hypertension 1072 5009 I10 encouraged to monitor bp at home with BP cuff Hyperglycemia 41048337 R 73.9 noted on labs 11/2017 - Health Concerns Section Related Observation LastModified by Organization Detai ls LastModified Time None Recorded Concern Status LastModified by Organization Details LastModified Time None Recorded Advance Directives Directive None Recorded Payers Insurance Date Sequence Insurance Name Policy Number Policy Singh Covered Member ID Singh Member ID Guarantor Name 08/22/2018 1 [place] [id number] Kalia Ramirez [id number] Kalia Ramirez Notes Date Note Type Note Provider Name and Address Organization Details Recorded Time 04/21/2017 text/html Hypertension F/UReported bypatient.Medications: taking medications as directed; no side effects from medication Lifestyle:regular exercise; limiting/avoiding salt; compliant with low salt diet Associated Symptoms:no dizziness; no lightheadedness; no chest pain; no shortness of breath; no palpitations; no edema; no calf pain with exertion; no headacheMedicare Annual Wellness VisitReported bypatient.Diet and Nutrition:healthy diet Fracture Risk:no history of fractures; no recent explained fracture; no sudden unexplained fractures; no previous musculoskeletal injuries Physical Activity:recent increase in physical activity; good physical condition; discussed exercise habits Depression Risk:never feels sad, empty, or tearful; no loss of interest in activities; no significant changes in weight; no sleep disturbances or insomnia; no agitation; no loss of energy; no feelings of worthlessness or guilt; no thoughts of suicide; no history of depression; no history of mood disorders Orientation:no disorientation to time; no disorientation to date; no disorientation to place Concentration and Memory:no decreased concentrating ability; no memory lapses or loss; does not forget words Speech/Motor difficulties:no speech difficulties; no difficulty expressing formulated concepts; no difficulty with fine manipulative tasks; no difficulty writing/copying; no slowed reaction time; does not knock things over when trying to pick them up Hearing:no loss of hearing Vision:no vision problems Activities of Daily Living:able to bathe with limited or no assistance; able to contol urination and bowels; able to dress with limited or no assistance; able to feed self with limited or no assistance; able to get out of chair or bed with limited or no assistance; able to groom with limited or no assistance Instrumental Activities of Daily Living:able to do house work with limited or no assistance; able to grocery shop with limited or no assistance; able to manage medications with limited or no assistance; able to manage money with limited or no assistance; able to prepare meals with limited or no assistance Falls Risk Assessment:no frequent falls while walking; no fall in the past year; no dizziness/vertigo small spot on the rt face not healing Earnestine Anderson MD [address] [place] [address], [place], [address], [facility] 04/21/2017 18:56:51 10/20/2017 text/html Hypertension F/UReported bypatient.Medications: taking medications as directed; no side effects from medication Lifestyle:regular exercise; limiting/avoiding salt; compliant with low salt diet Associated Symptoms:no dizziness; no lightheadedness; no chest pain; no shortness of breath; no palpitations; no edema; no calf pain with exertion; no headache Earnestine Anderson MD [address] [facility] [address], [place], [address], [facility] 10/20/2017 18:31:18 07/22/2018 text/html Medicare Annual Wellness VisitReported bypatient.Diet and Nutrition:healthy diet Fracture Risk:no history of fractures; no recent explained fracture; no sudden unexplained fractures; no previous musculoskeletal injuries Physical Activity:exercises on a regular basis; recent increase in physical activity; good physical condition Depression Risk:never feels sad, empty, or tearful; no loss of interest in activities; no significant changes in weight; no sleep disturbances or insomnia; no agitation; no loss of energy; no feelings of worthlessness or guilt; no thoughts of suicide; no history of depression; no history of mood disorders Orientation:no disorientation to time; no disorientation to date; no disorientation to place Concentration and Memory:no decreased concentrating ability; no memory lapses or loss; does not forget words Speech/Motor difficulties:no speech difficulties; no difficulty expressing formulated concepts; no difficulty with fine manipulative tasks; no difficulty writing/copying; no slowed reaction time; does not knock things over when trying to pick them up Hearing:no loss of hearing Vision:no vision problems Activities of Daily Living:able to bathe with limited or no assistance; able to contol urination and bowels; able to dress with limited or no assistance; able to feed self with limited or no assistance; able to get out of chair or bed with limited or no assistance; able to groom with limited or no assistance; able to toilet with limited or no assistance Instrumental Activities of Daily Living:able to do house work with limited or no assistance; able to grocery shop with limited or no assistance; able to manage medications with limited or no assistance; able to manage money with limited or no assistance; able to prepare meals with limited or no assistance; able to use the phone with limited or no assistance Falls Risk Assessment:no frequent falls while walking; no fall in the past year; no fall since last visit; no dizziness/vertigo Home Safety:no unsafe steven hazzards; no unsafe stairs; no unsafe gas appliances; working smoke/CO detectors; wears protective head gear for biking/high velocity; use of seatbelts; practicing 'safer sex'; no vision or hearing loss while driving; no fire arms; has hand bars in the bathroom/shower; good lighting in the home follow up [facility] [address] [facility] [address], [place], [address], [facility] 07/22/2018 09:22:30
--- NOTE | 2025-01-04 09:42 | WPDSLEEPSTUD ---
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 The patient occasionally snores. He occasionally has trouble sleeping when he has a cold. He denies waking up gasping for air throughout the night. He occasionally has breathing problems at night observed by himself or others. He denies sweating excessively at night. He denies having heart palpitations or irregular heartbeats during the night. He rarely falls asleep during the day but never while driving. He denies sleep paralysis, cataplexy and hypnagogic/ hypnopompic hallucinations. He rarely has trouble at school or work due to sleepiness. He denies feeling afraid of going to sleep. He denies having nightmares. He denies remembering his dreams. He occasionally has thoughts racing through his mind. He denies feeling sad, depressed or anxious. He denies having muscular tension. He rarely notices parts of his body jerk. He denies kicking during the night. He denies having crawling and aching feelings in his legs and denies having leg pain during denies grinding his teeth during sleep and denies awakening with morning jaw pain. He denies being bothered by pain during the day but is occasionally awakened by pain during the night. He occasionally wakes up feeling stiff in the morning. He rarely wakes up with sore or achy muscles he denies waking up with pain in the neck, spine other joints. He goes to bed at 9:00 p.m. on weekdays and at 10:00 p.m. on the weekends. It takes him 15 minutes to fall asleep. He wakes up at 3:15 a.m. on weekdays and at 5:30 a.m. on the weekends. He typically gets 4-5 hours of sleep per night. He will stay in bed for 5-10 minutes after waking up in the morning. He currently lives with his girlfriend. He denies consuming any caffeinated beverages within 2 hours of bedtime. He denies engaging in physical exercise before bedtime. He will watch television before falling asleep. He denies taking naps in afternoon or the evening. He consumes 2 caffeinated beverages per day. He quit smoking cigarettes 31 years ago. He consumes 1-2 glasses of wine per day. He denies recreational drug use. Sleep Procedure A full night split study using the Butlr multi-channel system recorded the standard physiologic parameters including EEG, EOG, submentalis EMG, anterior tibialis EMG, EKG, body position, nasal and oral airflow using nasal pressure sensor and thermistor.? Respiratory parameters of chest and abdominal movements were recorded with Respiratory Inductance Plethysmography belts. Oxygen saturation was recorded by pulse oximetry. Video monitoring was also performed. Sleep stages, periodic limb movements, and EEG arousals were scored in 30 second epochs according to the criteria of the AASM Scoring Manual. The Apnea-Hypopnea Index was calculated using CMS guidelines for definition of hypopnea with 4% O2 desaturations while scoring respiratory events. Sleep Architecture During the diagnostic portion of the study, the total recording time was 168.2 minutes. The total sleep time was 150.5 minutes. Sleep latency was 0.7 minutes.? REM latency was 51.0 minutes. Sleep Efficiency was 89.5%. The patient had 4 awakenings for an awakening index of 1.6. Wake after sleep onset time was 17.0 minutes. The patient spent 11.0 minutes, 7.3% of total sleep time in Stage N1. The patient spent 84.0 minutes, 55.8% in Stage N2. The patient spent 16.5 minutes, 11.0% in Stage N3. The patient spent 39.0 minutes, 25.9% in Stage REM sleep. At 12:10:21 AM the patient was placed on PAP treatment and was titrated at pressures ranging from 5 cm H20 up to 14 cm H20. During the treatment portion of the study, the total recording time was 355.1 minutes.? The total sleep time was 317.5 minutes. Sleep latency was 3.0 minutes. REM latency was 63.0 minutes. Sleep Efficiency was 89.4%. Wake after Sleep Onset time was 35.0 minutes. The patient spent 24.0 minutes, 7.6% of total sleep time in Stage N1. The patient spent 187.5 minutes, 59.1% in Stage N2. The patient spent 34.5 minutes, 10.9% in Stage N3. The patient spent 71.5 minutes, 22.5% in Stage REM. Respiratory Analysis During the diagnostic portion of the study, the patient had 48 hypopneas, 55 obstructive apneas, 1 mixed apnea and 1 central apnea for an overall Apnea Hypopnea Index of 41.9 events per hour. The REM Apnea Hypopnea Index was 46.2. The NREM Apnea Hypopnea Index was 40.9. The patient had a Central Apnea Hypopnea Index of 0.4. There was no evidence of Jamal-Sanchez Respirations. During the treatment portion of the study, the patient had 9 hypopneas, 5 obstructive apneas, 16 mixed apneas, and 26 central apneas for an overall Apnea Hypopnea Index of 10.6 events per hour. The REM Apnea Hypopnea Index was 17.6. The NREM Apnea Hypopnea Index was 8.5. The patient had a Central Apnea Hypopnea Index of 4.9. There was no evidence of Jamal-Sanchez Respirations. The patient was started on CPAP 5 cm H2O and titrated to CPAP 14 cm H2O. The patient was able to fall asleep starting on CPAP 5 cm H2O. The patient was able to achieve REM sleep starting on CPAP 6 cm H2O. The patient was able to achieve a residual AHI less than 5 with both NREM and REM sleep on the final pressure setting. On CPAP 14 cm H2O, the patient spent 33.5 minutes in NREM and 16.5 minutes in REM with 2 central apneas and 2 hypopneas, resulting in an AHI of 4.8. The patient had a sleep efficiency of 88.5% on this pressure setting. Arousals During the diagnostic portion of the study, there were a total of 56 arousals for an arousal index of 22.3.? There were 45 respiratory arousals for an index of 17.9. There were 4 periodic limb movement arousals for an index of 1.6.? There were 5 isolated limb movement arousals for an index of 2.0. There were 4 spontaneous arousals for an index of 1.6. During the treatment portion of the study, there were a total of 64 arousals for an index of 12.1.? There were 21 respiratory arousals for an index of 4.0. There were 7 periodic limb movement arousals for an index of 1.3.? There were 20 isolated limb movement arousals for an index of 3.8. There were 14 spontaneous arousals for an index of 2.6. Periodic Limb Movements During the diagnostic portion of the study, the patient had 12 isolated limb movements with an index of 4.8. The patient had 157 periodic limb movements with an index of 62.6, which is elevated (normal < 15). The patient had a total of 169 limb movements with a total limb movement index of 67.4. During the treatment portion of the study, the patient had 43 isolated limb movements with an index of 8.1. The patient had 114 periodic limb movements with an index of 21.5, which is elevated (normal < 15). The patient had a total of 157 limb movements with a total limb movement index of 29.7. Oximetry Data During the diagnostic portion of the study, the patient had an average oxygen saturation of 93.6% in wake with a minimum oxygen saturation of 86% and a maximum oxygen saturation of 96%. The patient had an average oxygen saturation of 92.3% in sleep with a minimum oxygen saturation of 79.0% and a maximum oxygen saturation of 98.0%. The patient had 103 oxygen desaturations resulting in an Oxygen Desaturation Index of 41.1. The patient spent 9.6 minutes, 5.9% of total sleep time with an oxygen saturation less than 88%. During the treatment portion of the study, the patient had an average oxygen saturation of 94.1% in wake with a minimum oxygen saturation of 83.0% and a maximum oxygen saturation of 98.0%. The patient had an average oxygen saturation of 93.7% in sleep with a minimum oxygen saturation of 84.0% and a maximum oxygen saturation of 98.0%. The patient had 53 oxygen desaturations resulting in an Oxygen Desaturation Index of 10.0. The patient spent 1.8 minutes, 0.5% of total sleep time with an oxygen saturation less than 88%. Snoring Profile Moderate to loud snoring was present on the baseline portion of the study. The snoring resolved once the patient was titrated to 14 cm H2O. The snores became very intermittent when the patient was titrated to 6 cm H2O. Cardiac Profile The EKG lead showed normal sinus rhythm. No arrhythmias or premature beats were seen. During the diagnostic portion of the study, the average pulse rate was 62.7 bpm.? The minimum pulse rate was 49.0 bpm. The maximum pulse rate was 90.0 bpm. During the treatment portion of the study, the average pulse rate was 60.2 bpm.? The minimum pulse rate was 50.0 bpm. The maximum pulse rate was 82.0 bpm. EEG Profile No signs of seizure activity seen. Assessment and Plan Assessment and Plan (1) ROSEMARY (obstructive sleep apnea): Code(s): G47.33 - Obstructive sleep apnea (adult) (pediatric) Status: Acute Assessment and Plan: On the baseline portion of the study, the patient had an overall AHI of 41.9 with desaturation down to 79%. This is consistent with severe sleep apnea. The patient was started on CPAP 5 cm H2O and titrated to CPAP 14 cm H2O. The patient's sleep apnea resolved on the final pressure setting with a good sleep efficiency. I recommend that the patient be prescribed CPAP 14 cm H2O without EPR, size medium Resmed AirFit F20 full face mask, CPAP filters/tubing and heated humidity. This should be used with all episodes of sleep.? Compliance should be reviewed within 31-90 days of starting therapy for usage greater than 4 hours per night greater than 70% of the nights. The patient should be asked about symptoms such as?excessive daytime sleepiness, quality of sleep, decreased nocturia, increased?mental functioning such as memory, mood, and concentration. While the patient had a significant number of periodic limb movements during both portions of the study, the frequency of the limb movements decreased drastically once the patient was titrated to the optimal pressure setting. I recommend asking the patient about leg movements during his first CPAP compliance visit. Data The data obtained during this sleep study is adequate for interpretation. Certification This sleep study has been reviewed by a board certified sleep medicine physician.
== END 2024-12-15 06:48 | disposition home or self-care (01) ==
LOC: ANHCSM 10:13
PROVIDERS: PCP Nurse Practitioner Family; Visit Provider Internal Medicine Cardiovascular Disease
DX: Z01.810 Encounter for preprocedural cardiovascular examination (principal); R01.1 Cardiac murmur, unspecified; E78.5 Hyperlipidemia, unspecified; R06.9 Unspecified abnormalities of breathing; G47.30 Sleep apnea, unspecified; I10 Essential (primary) hypertension; Z13.6 Encounter for screening for cardiovascular disorders
CPT/HCPCS: 95811